=== PATIENT | female | born 1995 | race Caucasian/White ===

== ENCOUNTER 2017-01-23 19:44 | Emergency (ER) | payer OTHER ==
[2017-01-23 20:08] VITALS: BP 138/75; PULSE 85; TEMP 98.1; BMI 23.1
--- NOTE | 2017-01-23 20:45 | PDOC ---
History of Present Illness - General Chief Complaint: Injury Stated Complaint: RT ARM INJURY Time Seen by Provider: 01/23/17 20:18 - History of Present Illness Initial Comments: 01/23/17 20:37 CHIEF COMPLAINT: right arm pain HISTORY OF PRESENT ILLNESS: 21 yo F with no PMH presents to [facility] with R arm pain s/p injury while playing lacrosse. Patient states she 'got a stick to the arm" during a game of lacrosse and her business trainer told her to get an x-ray. She denies any injury or pain to any other part of her body. No recent travel or sick contacts. PAST MEDICAL HISTORY: Denies past medical history FAMILY HISTORY: Denies SOCIAL HISTORY: Denies tobacco, alcohol, illicit drug use. SURGICAL HISTORY: Denies ALLERGIES: amoxicillin REVIEW OF SYSTEMS General/Constitutional: Denies fever or chills. Denies weakness, weight change. HEENT: Denies change in vision. Denies ear pain or discharge. Denies sore throat. Cardiovascular: Denies chest pain or shortness of breath. Respiratory: Denies cough, wheezing, or hemoptysis. Gastrointestinal: Denies nausea, vomiting, diarrhea or constipation. Denies rectal bleeding. Genitourinary: Denies dysuria, frequency, or change in urination. Musculoskeletal: Pain to R forearm. Skin and breasts: Denies rash or easy bruising. Neurologic: Denies headache, vertigo, loss of consciousness, or loss of sensation. PHYSICAL EXAM General Appearance: Well-appearing, appropriately dressed. HEENT: EOMI, PERRLA, normal voice. No conjunctival pallor. No photophobia, scleral icterus. Respiratory/Chest: Lungs CTAB. Cardiovascular: RRR. S1, S2. Musculoskeletal/Extremities: Tenderness to R lateral forearm. Full ROM to wrist and elbow of R arm, neurovascularly intact, pulses 2+. Normal inspection. FROM of all extremities, normal capillary refill. Pelvis Stable. No CVA tenderness. No tenderness to extremities, pedal edema, swelling, erythema or deformity. Integumentary: Appropriate color, dry, warm. No cyanosis, erythema, jaundice or rash Neurologic: supply technician II-XII intact. Fully oriented, alert. Appropriate mood/affect. Motor strength 5/5. No appreciable EOM palsy, facial droop or sensory deficit. 01/23/17 20:59 Past History - Past Medical History Allergies/Adverse Reactions: Allergies Allergy/AdvReac Type Severity Reaction Status Date / Time amoxicillin Allergy Verified 01/23/17 19:55 Home Medications: Ambulatory Orders Naproxen 250 mg PO BID #14 tablet 01/23/17 Other medical history: denies - Psycho/Social/Smoking Cessation Hx Suicidal Ideation: No Smoking History: Never smoked *Physical Exam - Vital Signs Last Vital Signs Temp Pulse Resp BP Pulse Ox 98.1 F 85 18 138/75 100 01/23/17 19:51 01/23/17 19:51 01/23/17 19:51 01/23/17 19:51 01/23/17 19:51 ED Treatment Course - RADIOLOGY Radiology Studies Ordered: Category Date Time Status FOREARM- RIGHT [RAD] Stat Radiology 01/23/17 20:35 Ordered Medical Decision Making - Medical Decision Making 01/23/17 20:59 21 yo F with no PMH presents to ED with right arm pain s/p injury playing lacrosse. -R forearm x-ray X-ray wet read negative for fracture. [place] bandage. -250 mg naproxen bid Advised patient to take meds as prescribed; rest, ice, compress, elevate site of injury; and follow up with ortho next week. Advised patient of signs and symptoms for return to ER; patient and father verbalized understanding and agree to plan. *DC/Admit/Observation/Transfer Diagnosis at time of Disposition: Pain in right arm - Discharge Dispostion Disposition: HOME Condition at time of disposition: Stable Admit: No - Prescriptions Prescriptions: Naproxen 250 mg PO BID #14 tablet - Referrals Referrals: STAFF,NOT ON [Primary Care Provider] - Hussain Lovett MD [Staff Physician] - - Patient Instructions Printed Discharge Instructions: DI for Arm Pain Additional Instructions: Please take medication as prescribed and follow up with orthopedics next week. If you experience any numbness, tingling, loss of sensation, or swelling to your arm, please return to the ER. - Post Discharge Activity Work/School Note: Back to School
== END 2017-01-23 21:30 | disposition home or self-care (01) ==
LOC: JERFT 19:44 → JER 19:44 → JERFT 21:30
DX: S59.811A Other specified injuries right forearm, initial encounter (principal); W21.89XA Striking against or struck by other sports equipment, initial encounter; Y93.65 Activity, lacrosse and field hockey; Y92.328 Other athletic field as the place of occurrence of the external cause; Y99.8 Other external cause status
CPT/HCPCS: 73090-TC-RT; 99281-25